=== PATIENT | female | born 1955 | race African-American/Black ===

== ENCOUNTER 2017-09-14 07:41 | Emergency (ER) | payer MEDICARE, MEDICAID ==
[~2017-09-14] VITALS: Ht 165.1 cm; Wt 72.6 kg
[2017-09-14] MEDS ORDERED: UNOBMED (07:49)
--- NOTE | 2017-09-14 08:06 | Emergency Room Report ---
History of Present Illness General Chief Complaint: Multiple Trauma/Fall Source: Patient Present Illness HPI 62-year-old female presenting with bilateral knee and wrist pain. Patient states that she slipped and fell yesterday, landing on her knees and her wrist. Mostly complaining of the pain to the left side. She is still been able to walk without difficulty Allergies: Coded Allergies: No Known Allergies (Unverified , 09/14/17) Patient History Past Medical History: see triage record Past Surgical History: none Pertinent Family History: none Last Menstrual Period: Post Reviewed Nursing Documentation: PMH: Agreed, PSxH: Agreed Nursing Documentation-PMH Hx Hypertension: Yes Review of Systems All Other Systems: negative except mentioned in HPI Physical Exam Vital Signs Date Time Temp Pulse Resp B/P (MAP) Pulse Ox O2 Delivery O2 Flow Rate FiO2 09/14/17 07:44 98.2 75 17 165/89 100 Room Air General Appearance: alert, GCS 15, non-toxic, mild distress Musculoskeletal: other - Right wrist and right knee, no abnormalities, full range of motion, left knee tender to palpation, no gross bony deformity, full range of motion, no effusion. Left wrist also with no deformity. Full range of motion. All pulses are intact Procedures Splinting Splinting : Consent: Verbal Location: L knee Pre-Made Type: RENETTA wrap Pre-Proc Neuro Vasc Exam: normal Post-Proc Neuro Vasc Exam: normal Patient Tolerated: Well Complications: None Medical Decision Making Diagnostic Impression: Primary Impression: Contusion ER Course 62-year-old female with left knee and left wrist pain DDX: Sprain/strain vs. fracture versus contusion Plan: Pain control with motrin XR ER course: stable, renetta wrap to L knee. no fx Disposition: Patient is to be discharged home. Patient educated to rest, ice, and elevate extremity and to avoid vigorous activity. Strict precautions discussed with patient on when to return to the emergency room including increased redness or swelling joints, increased pain/swelling of extremity, fever or chills, which could indicate severe illness. Patient is to follow up with their primary care doctor within 5 days. Patient also instructed to follow up with an orthopedic doctor if continuing to have mild/moderate pain as he may need further outpatient imaging. Patient agrees with plan. Please note that this Emergency Department Report was dictated using [employer] carrier inspector technology software, occasionally this can lead to erroneous entry secondary to interpretation by the dictation equipment. Xray ordered: Left knee 3 view Indication: Pain EP Interpretation: Yes Interpretation: No dislocation, no soft tissue swelling, no fractures Impression: No acute disease Electronically signed by Kae Yao MD Xray: Left wrist 3 view Indication: Pain EP Interpretation: Yes Interpretation: No dislocation, no soft tissue swelling, no fractures Impression: No acute disease Electronically signed by Kae Yao MD Last Vital Signs Date Time Temp Pulse Resp B/P (MAP) Pulse Ox O2 Delivery O2 Flow Rate FiO2 09/14/17 07:44 98.2 75 17 165/89 100 Room Air Disposition: HOME, SELF-CARE Condition: Improved Patient Instructions: Contusion, [id number] Kae Yao M.D. Sep 14, 2017 08:06
[2017-09-14 09:05] VITALS: BP 165/89
--- NOTE | 2017-09-14 12:23 | Diagnostic Imaging Report ---
Indication: Pain 3 views of the left knee were obtained. Findings: There is no acute fracture seen. The bones are osteopenic and there is no malalignment. Marginal spurs are present. IMPRESSION: No acute injury
--- NOTE | 2017-09-14 12:24 | Diagnostic Imaging Report ---
Indication: Pain Findings: 3 views of the left wrist were obtained. No acute fractures, malalignment, erosions or periostitis are identified. Soft tissues are unremarkable. Marginal spurs and joint space narrowing are demonstrated in several locations. Impression: No acute findings. Wrist arthrosis
== END 2017-09-14 09:06 | disposition home or self-care (01) ==
LOC: EMR 08:39
DX: M25.562 Pain in left knee (principal); M25.532 Pain in left wrist; I10 Essential (primary) hypertension; T14.8XXA Other injury of unspecified body region, initial encounter; W01.0XXA Fall on same level from slipping, tripping and stumbling without subsequent striking against object, initial encounter; Y92.9 Unspecified place or not applicable
CPT/HCPCS: 99284

== ENCOUNTER 2019-10-26 13:33 | Inpatient (IN) | payer MEDICARE, OTHER ==
[~2019-10-26] VITALS: Ht 162.6 cm; Wt 77.1 kg
[2019-10-26] VITALS (8 sets, daily range): BP systolic 144–204; BP diastolic 78–102
[~2019-10-26 13:33] MED LIST: UNOBMED
--- NOTE | 2019-10-26 13:37 | NUR ---
ED Nurse Note: PT AMBULATED TO ED DUE TO ANGIOEDEMA. PT PRESENT WITH SWOLLEN TONGUE AND GARGLED VOICE. PT STATES IT BEGAN AT 1000 AM TODAY. IV SITE ESTABLISEHD ON BOTH LEFT AND RIGHT AC. PT TOLERATED WELL
[2019-10-26] MEDS ORDERED: DiphenhydrAMINE 50mg/ml Inj IVP ONE (13:45)
[2019-10-26] MEDS ORDERED: Dexamethasone 4mg/ml vial IVP ONE (13:45)
[2019-10-26] MEDS ORDERED: Tranexamic Acid 500 MG in NS 55 ML IVPB ONE ×4 (13:45)
[2019-10-26] MEDS ORDERED: Lidocaine 2% Visc 15ml soln ORAL ONE (13:45)
[2019-10-26] MEDS ORDERED: Lidocaine 4% Amp 5ml INH ONE (13:45)
[2019-10-26] MEDS ORDERED: EPINEPHrine 1mg/1ml Amp IM ONE ×2 (13:45→14:45)
--- NOTE | 2019-10-26 13:45 | NUR ---
ED Nurse Note: NASAL TRUMPET INSERTED IN LEFT NARE. PT PLACED ON 5 L o2 FACE MASK.
[2019-10-26] MEDS ORDERED: AMLODIPINE BESY10 MG ORAL (13:52)
[2019-10-26] MEDS ORDERED: SPIRONOLACTONE100 MG ORAL (13:52)
[2019-10-26] MEDS ORDERED: SERTRALINE HCL25 MG ORAL (13:52)
[2019-10-26] MEDS ORDERED: VALACYCLOVIR500 MG ORAL (13:52)
[2019-10-26] MEDS ORDERED: VENTOLIN HFA18 GM INH (13:52)
[2019-10-26] MEDS ORDERED: CLONIDINE HCL0.1 MG PO (13:52)
[2019-10-26] MEDS ORDERED: WELLBUTRIN SR200 MG ORAL (13:52)
[2019-10-26] MEDS ORDERED: ACETAMINOPHEN-1 EAC4 ORAL (13:52)
[2019-10-26] MEDS ORDERED: REMERON15 M1 ORAL (13:52)
[2019-10-26] MEDS ORDERED: VITAMIN D34000 UNIT PO (13:52)
--- NOTE | 2019-10-26 14:00 | NUR ---
ED Nurse Note: PER ERMD OVERRIDE 30ML 1 % LIDOCAINE. PER ERMD NEBULIZE LIDOCAINE. RT AT BEDSIDE NEBULIZING MEDICATION
[2019-10-26] MEDS ORDERED: Lidocaine 1% Plain 30 ml INJ ONE ×2 (14:05→14:15)
--- NOTE | 2019-10-26 14:37 | Emergency Room Report ---
History of Present Illness General Chief Complaint: Allergic Reaction Source: Patient Present Illness HPI 64-year-old female history of hypertension history of hyperlipidemia history of HIV presents with tongue swelling that started at 10 AM, severity is severe, sudden onset, she states the symptoms plateaued around 12 PM, possibly aggravated by lisinopril no alleviating factors severity is severe, constant patient presents for evaluation due to difficulty breathing Allergies: Coded Allergies: LISINOPRIL (Verified Allergy, Unknown, 10/26/19) Patient History Limited by: medical condition - Tongue is occluding airway Past Medical History: see triage record Reviewed Nursing Documentation: PMH: Agreed; PSxH: Agreed Nursing Documentation-PMH Hx Hypertension: Yes History Of Psychiatric Problem: Yes Review of Systems All Other Systems: negative except mentioned in HPI Physical Exam Vital Signs Date Time Temp Pulse Resp B/P (MAP) Pulse Ox O2 Delivery O2 Flow Rate FiO2 10/26/19 13:37 114 19 204/97 (132) 100 10/26/19 14:12 98.4 Simple Mask 5.0 Sp02 EP Interpretation: reviewed, normal General Appearance: alert, severe distress Head: normocephalic, atraumatic Eyes: bilateral eye PERRL, bilateral eye EOMI ENT: uvula midline, moist mucus membranes, other - Tongue occluding airway however currently protecting airway, not drooling Neck: supple, thyroid normal, supple/symm/no masses Respiratory: lungs clear, no respiratory distress, no retraction, no accessory muscle use Cardiovascular #1: normal peripheral pulses, no edema, no gallop, no murmur, tachycardia Gastrointestinal: non tender, soft, no guarding, no rebound Musculoskeletal: normal inspection Neurologic: alert, oriented x3 Psychiatric: anxious Skin: no rash, warm/dry Procedures Critical Care Time Critical Care Time Given the critical condition in which the patient arrived, the patient was immediately assessed by myself and the nurse, and cardiac monitoring initiated due to the potential for rapid decompensation of the patient's clinical condition. During the course of the patient's stay, I spent a considerable amount of time at the bedside performing serial re-evaluations of the patient's hemodynamic and clinical status because of the recognized potential threat to life or limb in this condition. I then had a chance to review not only all of the available current laboratory and radiographic studies obtained today, but I also reviewed old records available to me at the time. Additionally, any ancillary information available including vascular technician records were reviewed. Sequential vital signs were obtained. Critical Care time of 49 minutes was performed exclusive of billable procedures. Medical Decision Making Diagnostic Impression: Primary Impression: Angioedema Qualified Codes: T78.3XXA - Angioneurotic edema, initial encounter ER Course 64-year-old female presents with acute shortness of breath due to occlusion of her airway however she is currently packing her secretions, preparation for a week intubation, patient was given TXA, epinephrine, famotidine, Decadron, a liter of fluid as well as nebulized lidocaine. Anesthesia was emergently called We continued to monitor the airway Cric kit was placed at bedside, with video laryngoscopy. Multiple re-evaluations showed tongue swelling has slowly decreased will admit patient to the ICU for continued monitoring reevaluation 2:36 PM patient is currently protecting her airway Patient will be monitored in the ED for another hour. Patient admitted to Dr. Henderson Last Vital Signs Date Time Temp Pulse Resp B/P (MAP) Pulse Ox O2 Delivery O2 Flow Rate FiO2 10/26/19 14:12 114 19 10/26/19 14:12 98.4 204/97 100 Simple Mask 5.0 Disposition: ADMITTED INPATIENT Condition: Critical Referrals: NON PHYSICIAN (PCP) Justo Justice MD Oct 26, 2019 14:37
--- NOTE | 2019-10-26 14:40 | NUR ---
ED Nurse Note: BLOOD SPECIMEN OBTAINED; SENT TO LAB
--- NOTE | 2019-10-26 14:40 | NUR ---
ED Nurse Note: DAUGHTER SOLO AT BEDSIDE
[2019-10-26 14:47] LABS: BASOPHILS % (AUTO) 1.2 % (0.0-2.0); EOSINOPHILS % (AUTO) 1.8 % (0.0-3.0); HEMATOCRIT 28.3 % (37.0-47.0); HEMOGLOBIN 9.9 G/DL (12.0-16.0); LYMPHOCYTES % (AUTO) 39.4 % (20.0-45.0); MEAN CORPUSCULAR VOLUME 85 FL (80-99); MONOCYTES % (AUTO) 11.2 % (1.0-10.0); NEUTROPHILS % (AUTO) 46.5 % (45.0-75.0); PLATELET COUNT 416 K/UL (150-450); RED BLOOD COUNT 3.32 M/UL (4.20-5.40); RED CELL DISTRIBUTION WIDTH 12.4 % (11.6-14.8); WHITE BLOOD COUNT 15.2 K/UL (4.8-10.8)
--- NOTE | 2019-10-26 14:50 | NUR ---
ED Nurse Note: PT URINE COLLECTED. PT WAS ASSITED ON BED BRISENO
[2019-10-26] MEDS ORDERED: Albuterol/Ipratropium 3ml neb HHN PRN (15:00)
[2019-10-26] MEDS ORDERED: Labetalol 5mg/ml 20ml vial IV PRN (15:00)
[2019-10-26 15:12] LABS: ANION GAP 15 mmol/L (5-15); BLOOD UREA NITROGEN 34 mg/dL (7-18); CALCIUM 9.7 MG/DL (8.5-10.1); CARBON DIOXIDE 19 MMOL/L (21-32); CHLORIDE 108 MMOL/L (98-107); CREATININE 1.8 MG/DL (0.55-1.30); SODIUM 142 MMOL/L (136-145)
[2019-10-26 15:17] LABS: ALANINE AMINOTRANSFERASE 73 U/L (12-78); ALBUMIN 3.5 G/DL (3.4-5.0); ALBUMIN/GLOBULIN RATIO 0.7 (1.0-2.7); ALKALINE PHOSPHATASE 145 U/L (46-116); ASPARTATE AMINO TRANSFERASE 43 U/L (15-37); BILIRUBIN,TOTAL 0.3 MG/DL (0.2-1.0)
[2019-10-26] MEDS ORDERED: Morphine Sulfate 2mg/ml Inj(IV/IM USE ONLY) IVP ONE (15:45)
[2019-10-26] MEDS ORDERED: Miralax 17gm pkt ORAL PRN (16:00)
[2019-10-26] MEDS ORDERED: Nitroglycerin Subl 0.4mg tab SL PRN (16:00)
--- NOTE | 2019-10-26 16:49 | NUR ---
ED Nurse Note: report given to EFRAIN Reina for continuity of care
--- NOTE | 2019-10-26 16:49 | NUR ---
TRANSFER TO FLOOR: Patient transferred to ICU as ordered, per ERMD . Report given to EFRAIN DAVIS. Belongings and medications given to FAMILY. Family informed of transfer.
--- NOTE | 2019-10-26 17:00 | NUR ---
NURSE NOTES: Patient received from EFRAIN Dunbar. patient is able to communicated clearly, swelling noted on mouth and neck, family at the bedside and updated condition. patient Iphone is at the bedside with graves registration specialist inside patient belongings. she is saturating at 97-99% with no distress on room air. -patient waled to bed with no assistance and has a steady gait.
--- NOTE | 2019-10-26 17:40 | NUR ---
NURSE NOTES: Dr. Coleman contacted to palce and order for NPO and Tylenol #3 on tab po q4hrs for severe pain. patient is experienceing pain on the lower back, left hip and extends to the knees of both legs. rated the pain around 7-8.
--- NOTE | 2019-10-26 17:49 | History & Physical ---
History and Physical History & Physicial Dictated for Int Med-DR Pride. [id number]. ICU Rogelio Buenrostro MD Oct 26, 2019 17:49
--- NOTE | 2019-10-26 17:55 | NUR ---
NURSE NOTES: Dr. hoover is at the bedside with patient, no verbal orders given at this time.
[2019-10-26] MEDS: Tylenol #3 tab (300mg/30mg) ORAL PRN ×2 (18:26→23:03)
--- NOTE | 2019-10-26 19:08 | NUR ---
CASE MANAGEMENT: REVIEW 64 YEAR OLD FEMALE PRESENTED TO ED FROM HOME CC: SWOLLEN TONGUE . HX HIV SI: ANGIOEDEMA T 98.4 HR 114 RR 19 BP 204/97 SAT 98% SIMPLE MASK FLOW RATE 5.0 WBC 15.2 H/H 9.9/28.3 TROP 0.071 IS: NS IVF BOLUS X1 TRANEXAMIC ACID IV X1 PEPCID IV X1 BENADRYL IV X1 NPO PATIENT ADMITTED TO ICU 10/26/2019 DCP: PATIENT IS FROM HOME
--- NOTE | 2019-10-26 19:31 | NUR ---
HAND-OFF: Report given to EFRAIN Hou.
--- NOTE | 2019-10-26 19:45 | NUR ---
NURSE NOTES: awake and alert no c/o pain and sob hr sr voiding freely
[2019-10-26] MEDS: Heparin 5000 units/ml inj SUBQ SCH (21:54)
--- NOTE | 2019-10-26 22:00 | NUR ---
NURSE NOTES: C/O PAIN MEDICATED ORDER WITH RELIEF
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
[2019-10-27] VITALS (18 sets, daily range): BP systolic 110–148; BP diastolic 52–110
--- NOTE | 2019-10-27 | NUR ---
NURSE NOTES: ASLEEP NO ACUTE RESP DISTRESS
--- NOTE | 2019-10-27 02:00 | NUR ---
NURSE NOTES: SLEEP NO DISTRESS NOTED
[2019-10-27] MEDS: Tylenol #3 tab (300mg/30mg) ORAL PRN ×3 (03:46→18:20)
--- NOTE | 2019-10-27 03:47 | NUR ---
NURSE NOTES: Pt complaining of aching head ache, scale of 8. Tylenol #3 was given.
--- NOTE | 2019-10-27 04:00 | NUR ---
NURSE NOTES: n0 c/o of pain refuse bed bath she want at [id number]
--- NOTE | 2019-10-27 06:00 | NUR ---
NURSE NOTES: asleep no acute resp distress noted
--- NOTE | 2019-10-27 06:00 | NUR ---
NURSE NOTES: reposition and suction
[2019-10-27 06:18] LABS: ANION GAP 16 mmol/L (5-15); BLOOD UREA NITROGEN 29 mg/dL (7-18); CALCIUM 10.2 MG/DL (8.5-10.1); CARBON DIOXIDE 16 MMOL/L (21-32); CHLORIDE 108 MMOL/L (98-107); CREATININE 1.4 MG/DL (0.55-1.30); POTASSIUM 5.6 MMOL/L (3.5-5.1); SODIUM 140 MMOL/L (136-145)
[2019-10-27 06:40] LABS: INR 0.9 (0.9-1.1)
[2019-10-27 06:58] LABS: HEMATOCRIT 28.2 % (37.0-47.0); HEMOGLOBIN 9.8 G/DL (12.0-16.0); MEAN CORPUSCULAR VOLUME 85 FL (80-99); PLATELET COUNT 453 K/UL (150-450); RED BLOOD COUNT 3.33 M/UL (4.20-5.40); RED CELL DISTRIBUTION WIDTH 12.6 % (11.6-14.8)
[2019-10-27 07:02] LABS: % IRON SATURATION 16 % (15-50); IRON 44 ug/dL (50-175); TOTAL IRON BINDING CAPACITY 277 ug/dL (250-450)
[2019-10-27 07:38] LABS: CHOLESTEROL 176 MG/DL (< 200); HDL CHOLESTEROL 51 MG/DL (40-60); LACTATE DEHYDROGENASE 203 U/L (81-234); TRIGLYCERIDES 41 MG/DL (30-150)
--- NOTE | 2019-10-27 07:44 | NUR ---
HAND-OFF: Report given to sam barbosa using sbar
--- NOTE | 2019-10-27 07:45 | NUR ---
NURSE NOTES: Report received from EFRAIN Humphrey. Pt observed fully awake, A&Ox4, following all commands. Pt is on room air. NSR on the network liaison. Using bedside commode to void. Bed locked and in lowest position with call light within reach Will resume plan of care.
[2019-10-27] MEDS: Heparin 5000 units/ml inj SUBQ SCH ×2 (08:37→21:00)
[2019-10-27] MEDS ORDERED: Docusate 100mg cap ORAL SCH (09:00)
[2019-10-27] MEDS ORDERED: Sodium Polystyrene Sulfonate 15gm Powder ORAL SCH (09:00)
[2019-10-27] MEDS ORDERED: Sertraline 50mg tab ORAL SCH (09:00)
[2019-10-27] MEDS ORDERED: BuPROPion SR 150mg tab ORAL SCH (09:00)
--- NOTE | 2019-10-27 09:00 | NUR ---
NURSE NOTES: Pt refused Heparin this morning, despite encouragement, d/t not wanting to get a needle stick.
--- NOTE | 2019-10-27 09:03 | Consultation ---
Consult Note Consult Note Asked to eval for renal failure-BP management and Electrolyte imbalance interviewed, examined- discussed with RN Rachael rivas historian symptoms of angioedema now resolved ER 64-year-old female history of hypertension history of hyperlipidemia history of HIV presents with tongue swelling that started at 10 AM, severity is severe, sudden onset, she states the symptoms plateaued around 12 PM, possibly aggravated by lisinopril no alleviating factors severity is severe, constant patient presents for evaluation due to difficulty breathing LISINOPRIL (Verified Allergy, Unknown, 10/26/19) Limited by: medical condition - Tongue is occluding airway Hx Hypertension: Yes History Of Psychiatric Problem: Yes Assessment/Plan Renal failure- Hyperkalemia HTN Anemia- Angioedema due to lisinopril Elevated Troponin h/o Depression adjust BP meds- IV hydrate one dose Kayexelate resume diet- cardiac nitrate Anemia williamson 2D echo Kidney MACY urine studies per orders Jordin Llanos MD Oct 27, 2019 09:03
[2019-10-27 09:16] LABS: ALANINE AMINOTRANSFERASE 60 U/L (12-78); ALBUMIN 3.5 G/DL (3.4-5.0); ALKALINE PHOSPHATASE 145 U/L (46-116); ASPARTATE AMINO TRANSFERASE 32 U/L (15-37); BILIRUBIN,TOTAL 0.3 MG/DL (0.2-1.0); PHOSPHORUS 3.1 MG/DL (2.5-4.9)
[2019-10-27 09:17] LABS: BILIRUBIN,DIRECT < 0.1 MG/DL (0.0-0.3)
--- NOTE | 2019-10-27 10:10 | NUR ---
NURSE NOTES: Tech at bedside performing 2D echo. Dr Coleman at bedside, updated him with pt's current condition. Pt does not want her hx of HIV being mentioned in front of her family members. Dr Coleman aware.
[2019-10-27 10:54] LABS: APPEARANCE,URINE CLEAR; BILIRUBIN, URINE NEGATIVE (NEGATIVE); COLOR,URINE PALE YELLOW; GLUCOSE, URINE (UA) NEGATIVE (NEGATIVE); KETONES,URINE NEGATIVE (NEGATIVE); LEUKOCYTE ESTERASE ,URINE NEGATIVE (NEGATIVE); NITRITE,URINE NEGATIVE (NEGATIVE); PH,URINE 6 (4.5-8.0); PROTEIN,URINE NEGATIVE (NEGATIVE); UROBILINOGEN,URINE NORMAL MG/DL (0.0-1.0)
--- NOTE | 2019-10-27 11:00 | NUR ---
NURSE NOTES: Assisted pt with Oral care. Pt able to reposition herself.
--- NOTE | 2019-10-27 11:58 | Consultation ---
History of Present Illness General Date patient seen: Oct 27, 2019 Chief Complaint: Allergic Reaction Present Illness HPI 64 year old female with hx of HTN, COPD, depression, HIV presented to ER with swelling of tongue, her SBP was 220 in ER. She received Dexamethasone, Epinephrine, and clonidine for BP and transferred to ICU. Allergies: Coded Allergies: LISINOPRIL (Verified Allergy, Unknown, 10/26/19) Medication History Scheduled Albuterol Sulfate (Ventolin Hfa), 2 PUFFS INH EVERY 6 HOURS, (Reported) Amlodipine Besylate* (Amlodipine Besylate*), 10 MG ORAL DAILY, (Reported) Mirtazapine (Remeron), 15 MG ORAL BEDTIME, (Reported) Sertraline Hcl* (Sertraline Hcl*), 25 MG ORAL DAILY, (Reported) Spironolactone* (Spironolactone*), 50 MG ORAL DAILY, (Reported) Valacyclovir Hcl* (Valtrex*), 500 MG ORAL TWICE A DAY, (Reported) Scheduled PRN Acetaminophen With Codeine 300MG/60MG* (Acetaminophen With Codeine #4 Tab*), 1 TAB ORAL Q6H PRN for For Pain, (Reported) Miscellaneous Medications Bupropion Hcl (Wellbutrin Sr), 150 MG ORAL, (Reported) Cholecalciferol (Vitamin D3) (Vitamin D3), 5,000 UNIT PO, (Reported) Clonidine Hcl (Clonidine Hcl), 0.1 MG PO, (Reported) Unable to Obtain Medications (Unable To Obtain Meds), (Reported) Patient History Healthcare decision maker Resuscitation status Full Code Advanced Directive on File Family History Family History: (1) HIV disease (2) S/P splenectomy (3) History of hypertension (4) Hypertensive emergency (5) Depression (6) Hypertension (7) COPD (chronic obstructive pulmonary disease) Review of Systems All Other Systems: negative except mentioned in HPI Physical Exam General Appearance: WD/WN, no apparent distress Lines, tubes and drains: peripheral HEENT: normocephalic, atraumatic Neck: non-tender, normal alignment, supple Respiratory/Chest: lungs clear, normal breath sounds Cardiovascular/Chest: normal peripheral pulses, normal rate Abdomen: hyperactive bowel sounds Extremities: normal range of motion Last 24 Hour Vital Signs Date Time Temp Pulse Resp B/P (MAP) Pulse Ox O2 Delivery O2 Flow Rate FiO2 10/27/19 11:00 75 19 120/75 (90) 100 10/27/19 10:00 72 19 148/110 (123) 100 10/27/19 09:00 83 16 128/58 (81) 94 10/27/19 08:51 148/95 10/27/19 08:48 85 148/95 10/27/19 08:00 97.7 71 14 148/95 (112) 98 10/27/19 08:00 73 10/27/19 08:00 Room Air 10/27/19 07:08 73 20 98 Room Air 21 10/27/19 07:00 76 20 139/90 (106) 98 10/27/19 04:00 Room Air 10/27/19 04:00 73 10/27/19 00:00 Room Air 10/27/19 00:00 87 10/26/19 21:00 149/88 10/26/19 20:00 Room Air 10/26/19 20:00 99 10/26/19 18:57 104 20 96 Room Air 21 10/26/19 17:00 98.8 102 23 144/78 (100) 96 10/26/19 16:45 98.7 89 17 159/91 94 Room Air 10/26/19 16:45 98.7 10/26/19 15:10 98.5 107 17 165/100 98 Simple Mask 5.0 10/26/19 14:12 114 19 10/26/19 14:12 98.4 114 19 204/97 100 Simple Mask 5.0 10/26/19 13:37 114 19 204/97 (132) 100 Intake and Output 10/26/19 10/27/19 19:00 07:00 Intake Total 120 ml 0 ml Output Total 0 ml 900 ml Balance 120 ml -900 ml Intake Oral 0 ml 0 ml IV Total 120 ml Output Urine Total 0 ml 900 ml # Voids 1 # Bowel Movements 1 Laboratory Tests Test 10/26/19 14:35 10/27/19 05:20 10/27/19 09:15 White Blood Count 15.2 K/UL (4.8-10.8) H 14.0 K/UL (4.8-10.8) H Red Blood Count 3.32 M/UL (4.20-5.40) L 3.33 M/UL (4.20-5.40) L Hemoglobin 9.9 G/DL (12.0-16.0) L 9.8 G/DL (12.0-16.0) L Hematocrit 28.3 % (37.0-47.0) L 28.2 % (37.0-47.0) L Mean Corpuscular Volume 85 FL (80-99) 85 FL (80-99) Mean Corpuscular Hemoglobin 29.8 PG (27.0-31.0) 29.6 PG (27.0-31.0) Mean Corpuscular Hemoglobin Concent 35.0 G/DL (32.0-36.0) 34.9 G/DL (32.0-36.0) Red Cell Distribution Width 12.4 % (11.6-14.8) 12.6 % (11.6-14.8) Platelet Count 416 K/UL (150-450) 453 K/UL (150-450) H Mean Platelet Volume 5.3 FL (6.5-10.1) L 5.0 FL (6.5-10.1) L Neutrophils (%) (Auto) 46.5 % (45.0-75.0) % (45.0-75.0) Lymphocytes (%) (Auto) 39.4 % (20.0-45.0) % (20.0-45.0) Monocytes (%) (Auto) 11.2 % (1.0-10.0) H % (1.0-10.0) Eosinophils (%) (Auto) 1.8 % (0.0-3.0) % (0.0-3.0) Basophils (%) (Auto) 1.2 % (0.0-2.0) % (0.0-2.0) Sodium Level 142 MMOL/L (136-145) 140 MMOL/L (136-145) Potassium Level 5.0 MMOL/L (3.5-5.1) 5.6 MMOL/L (3.5-5.1) H Chloride Level 108 MMOL/L (98-107) H 108 MMOL/L (98-107) H Carbon Dioxide Level 19 MMOL/L (21-32) L 16 MMOL/L (21-32) L Anion Gap 15 mmol/L (5-15) 16 mmol/L (5-15) H Blood Urea Nitrogen 34 mg/dL (7-18) H 29 mg/dL (7-18) H Creatinine 1.8 MG/DL (0.55-1.30) H 1.4 MG/DL (0.55-1.30) H Estimat Glomerular Filtration Rate 34.3 mL/min (>60) 45.8 mL/min (>60) Glucose Level 129 MG/DL (74-106) H 122 MG/DL (74-106) H Calcium Level 9.7 MG/DL (8.5-10.1) 10.2 MG/DL (8.5-10.1) H Total Bilirubin 0.3 MG/DL (0.2-1.0) 0.3 MG/DL (0.2-1.0) Aspartate Amino Transf (AST/SGOT) 43 U/L (15-37) H 32 U/L (15-37) Alanine Aminotransferase (ALT/SGPT) 73 U/L (12-78) 60 U/L (12-78) Alkaline Phosphatase 145 U/L (46-116) H 145 U/L (46-116) H Troponin I 0.071 ng/mL (0.000-0.056) 0.120 ng/mL (0.000-0.056) Total Protein 8.3 G/DL (6.4-8.2) H 8.6 G/DL (6.4-8.2) H Albumin 3.5 G/DL (3.4-5.0) 3.5 G/DL (3.4-5.0) Globulin 4.8 g/dL Albumin/Globulin Ratio 0.7 (1.0-2.7) L Differential Total Cells Counted 100 Neutrophils % (Manual) 81 % (45-75) H Lymphocytes % (Manual) 12 % (20-45) L Monocytes % (Manual) 7 % (1-10) Eosinophils % (Manual) 0 % (0-3) Basophils % (Manual) 0 % (0-2) Band Neutrophils 0 % (0-8) Platelet Estimate Adequate Platelet Morphology Normal Hypochromasia 1+ Erythrocyte Sedimentation Rate 85 MM/HR (0-30) H Reticulocyte Count Pending Prothrombin Time 10.0 SEC (9.30-11.50) Prothromb Time International Ratio 0.9 (0.9-1.1) Activated Partial Thromboplast Time 22 SEC (23-33) L Uric Acid Pending Phosphorus Level 3.1 MG/DL (2.5-4.9) Magnesium Level 2.0 MG/DL (1.8-2.4) Iron Level 44 ug/dL (50-175) L Total Iron Binding Capacity 277 ug/dL (250-450) Percent Iron Saturation 16 % (15-50) Unsaturated Iron Binding 233 ug/dL (112-346) Ferritin 422 NG/ML (8-388) H Direct Bilirubin < 0.1 MG/DL (0.0-0.3) Lactate Dehydrogenase 203 U/L (81-234) Total Creatine Kinase Pending C-Reactive Protein, Quantitative 4.6 mg/dL (0.00-0.90) H Triglycerides Level 41 MG/DL (30-150) Cholesterol Level 176 MG/DL (< 200) LDL Cholesterol 112 mg/dL (<100) H HDL Cholesterol 51 MG/DL (40-60) Cholesterol/HDL Ratio 3.5 (3.3-4.4) Carcinoembryonic Antigen Pending Vitamin B12 Level 1176 PG/ML (193-986) H Folate 18.0 NG/ML (8.6-58.9) Thyroid Stimulating Hormone (TSH) 0.213 uiU/mL (0.358-3.740) Urine Color Pale yellow Urine Appearance Clear Urine pH 6 (4.5-8.0) Urine Specific [place] 1.010 (1.005-1.035) Urine Protein Negative (NEGATIVE) Urine Glucose (UA) Negative (NEGATIVE) Urine Ketones Negative (NEGATIVE) Urine Blood Negative (NEGATIVE) Urine Nitrite Negative (NEGATIVE) Urine Bilirubin Negative (NEGATIVE) Urine Urobilinogen Normal MG/DL (0.0-1.0) Urine Leukocyte Esterase Negative (NEGATIVE) Urine RBC 0 /HPF (0 - 2) Urine WBC 0 /HPF (0 - 2) Urine Squamous Epithelial Cells Occasional /LPF Urine Bacteria Occasional /HPF (NONE) Urine Random Sodium 138 mmol/L (20-110) H Urine Opiates Screen Positive (NEGATIVE) H Urine Barbiturates Screen Negative (NEGATIVE) Phencyclidine (PCP) Screen Negative (NEGATIVE) Urine Amphetamines Screen Negative (NEGATIVE) Urine Benzodiazepines Screen Negative (NEGATIVE) Urine Cocaine Screen Negative (NEGATIVE) Urine Marijuana (THC) Screen Negative (NEGATIVE) Microbiology Date/Time Source Procedure Growth Status 10/26/19 15:09 Rectum Received Height (Feet): 5 Height (Inches): 4.00 Weight (Pounds): 166 Medications Current Medications Medications (Trade) Dose Ordered Sig/Abel Route PRN Reason Start Time Stop Time Status Last Admin Dose Admin Acetaminophen (Tylenol) 650 mg Q4H PRN ORAL FEVER 10/26/19 15:00 11/25/19 14:59 Acetaminophen/ Codeine Phosphate (Tylenol #3) 1 tab Q4H PRN ORAL Severe Pain (Pain Scale 7-10) 10/26/19 17:30 11/02/19 17:29 10/27/19 08:49 Albuterol/ Ipratropium (Albuterol/ Ipratropium) 3 ml Q4H PRN HHN Shortness of Breath 10/26/19 15:00 10/31/19 14:59 Amlodipine Besylate (Norvasc) 10 mg DAILY ORAL 10/27/19 09:00 11/26/19 08:59 10/27/19 08:48 Bupropion HCl (Wellbutrin SR) 150 mg DAILY ORAL 10/27/19 09:00 11/26/19 08:59 10/27/19 08:50 Clonidine HCl (Catapres Tab) 0.1 mg EVERY 8 HOURS ORAL 10/27/19 14:00 11/25/19 20:59 Docusate Sodium (Colace) 100 mg TWICE A DAY ORAL 10/27/19 09:00 11/26/19 08:59 10/27/19 09:24 Heparin Sodium (Porcine) (Heparin 5000 units/ml) 5,000 units EVERY 12 HOURS SUBQ 10/26/19 21:00 11/25/19 20:59 10/26/19 21:54 Labetalol HCl (Normodyne) 20 mg Q1H PRN IV sbp more than 160 10/26/19 15:00 11/25/19 14:59 Nitroglycerin (Ntg) 0.4 mg Q5MIN PRN SL Prn Chest Pain 10/26/19 16:00 11/25/19 15:59 Ondansetron HCl (Zofran) 4 mg Q6H PRN IVP Nausea & Vomiting 10/26/19 16:00 11/25/19 15:59 Pantoprazole (Protonix) 40 mg DAILY ORAL 10/27/19 09:00 11/26/19 08:59 10/27/19 08:51 Polyethylene Glycol (Miralax) 17 gm DAILYPRN PRN ORAL Constipation 10/26/19 16:00 11/25/19 15:59 Sertraline HCl (Zoloft) 25 mg DAILY ORAL 10/27/19 09:00 11/26/19 08:59 10/27/19 08:50 Sodium Chloride 1,000 ml @ 75 mls/hr [id number] IV 10/27/19 09:00 11/26/19 08:59 10/27/19 09:14 Temazepam (Restoril) 15 mg HSPRN PRN ORAL Insomnia 10/26/19 21:00 11/02/19 20:59 Assessment/Plan Problem List: (1) Hypertensive emergency ICD Codes: I16.1 - Hypertensive emergency SNOMED: 551932780050308 (2) Angioedema ICD Codes: T78.3XXA - Angioneurotic edema, initial encounter SNOMED: 36590050 Qualifiers: Qualified Codes: T78.3XXA - Angioneurotic edema, initial encounter (3) COPD (chronic obstructive pulmonary disease) ICD Codes: J44.9 - Chronic obstructive pulmonary disease, unspecified SNOMED: 17678602 (4) Depression ICD Codes: F32.9 - Major depressive disorder, single episode, unspecified SNOMED: 49062125 (5) S/P splenectomy ICD Codes: Z90.81 - Acquired absence of spleen SNOMED: 85630342, 425975738, 337153069 (6) HIV disease ICD Codes: B20 - Human immunodeficiency virus [HIV] disease SNOMED: 58139248 Assessment/Plan: Pts angioedema has subsided already BP is better will transfer to telemetry anemia and renal w/u in progress. check electrolytes pt wished that none of her relatives find out about her HIV. symptomatic treatment dvt prophylaxis. Ruel Coleman MD Oct 27, 2019 11:58
[2019-10-27 12:04] LABS: CREATINE KINASE 236 U/L (26-308)
--- NOTE | 2019-10-27 13:00 | NUR ---
NURSE NOTES: After eating lunch, Pt had a BM in the bedside commode. OB stool collected and sent down to the lab. No distress noted at this time.
--- NOTE | 2019-10-27 14:09 | Diagnostic Imaging Report ---
Indication: Acute renal failure, abnormal renal function tests Technique: Grayscale and duplex images of the kidneys, retroperitoneum, and bladder were obtained. Comparison: none Findings: Right kidney measures 9.1 cm in length. Left kidney measures 9 cm in length. Both kidneys demonstrate normal echogenicity. No hydronephrosis. Left kidney demonstrates a small cyst.. Normal inferior vena cava. Bladder is empty. Impression: Essentially unremarkable exam Incidental finding of small left renal cyst.
--- NOTE | 2019-10-27 15:00 | NUR ---
NURSE NOTES: Pt voices no concerns at this time. No distress noted. Pt able to reposition herself. Observed resting in bed.
--- NOTE | 2019-10-27 16:21 | NUR ---
DIRECTOR TELEMETRY NOTE Pt was admitted to ICU on 10/26/2019. Pt presents as A&O4x and cooperative. Pt resides alone at [address] [place] [id number]. Pt receives IHSS appx 100 hrs/mo. Pt is single, never and has four adult daughters. The caregiver is pt's youngest daughter, Altagracia Heath [phone]. Pt is ambulatory w/ cane and she also has a walker. Pt is independent w/ ADLs and occasionally receives assistance from her daughter. Emergency contacts provided: Valeri Dial (sister) [phone]. Pt does not have POA/AD/POLST. PT is expressing full code. Pt reports her daughters will be the decision makers if pt cannot make one. Bienvenido (primary/eldest daughter) [phone] and Laurel (second daughter) [phone]. Pt plans to return home upon DC. Pt does not share any concern/needs at this time. SW to F/U as needed. Signed: 10/27/19 at 1625 by MATILDA UMANA <Co-Signature Required>
[2019-10-27] MEDS ORDERED: Labetalol 5mg/ml 20ml vial IV PRN (17:00)
[2019-10-27] MEDS ORDERED: Nitroglycerin Subl 0.4mg tab SL PRN (17:00)
[2019-10-27] MEDS ORDERED: Albuterol/Ipratropium 3ml neb HHN PRN (17:00)
--- NOTE | 2019-10-27 17:00 | NUR ---
TRANSFER TO FLOOR: Patient transferred to Tele [id number], per Dr Coleman. Report given to EFRAIN Drake. Belongings kept by pt;belonging sheet signed with receiving RN. Family informed of transfer.
[2019-10-27] MEDS: Docusate 100mg cap ORAL SCH (18:12)
--- NOTE | 2019-10-27 19:22 | Internal Med Progress Note ---
Subjective Date of Service: Oct 27, 2019 Physician Name Rogelio Buenrostro Attending Physician Robles Henderson MD Current Medications Medications (Trade) Dose Ordered Sig/Abel Route PRN Reason Start Time Stop Time Status Last Admin Dose Admin Acetaminophen (Tylenol) 650 mg Q4H PRN ORAL FEVER 10/27/19 17:00 11/25/19 16:59 Acetaminophen/ Codeine Phosphate (Tylenol #3) 1 tab Q4H PRN ORAL Severe Pain (Pain Scale 7-10) 10/27/19 17:00 11/02/19 16:59 10/27/19 18:20 Albuterol/ Ipratropium (Albuterol/ Ipratropium) 3 ml Q4H PRN HHN Shortness of Breath 10/27/19 17:00 10/31/19 16:59 Amlodipine Besylate (Norvasc) 10 mg DAILY ORAL 10/28/19 09:00 11/26/19 08:59 Bupropion HCl (Wellbutrin SR) 150 mg DAILY ORAL 10/28/19 09:00 11/26/19 08:59 Clonidine HCl (Catapres Tab) 0.1 mg EVERY 8 HOURS ORAL 10/27/19 22:00 11/25/19 20:59 Docusate Sodium (Colace) 100 mg TWICE A DAY ORAL 10/27/19 18:00 11/26/19 08:59 10/27/19 18:12 Heparin Sodium (Porcine) (Heparin 5000 units/ml) 5,000 units EVERY 12 HOURS SUBQ 10/27/19 21:00 11/25/19 20:59 Labetalol HCl (Normodyne) 20 mg Q1H PRN IV sbp more than 160 10/27/19 17:00 11/25/19 14:59 Nitroglycerin (Ntg) 0.4 mg Q5MIN PRN SL Prn Chest Pain 10/27/19 17:00 11/25/19 16:59 Ondansetron HCl (Zofran) 4 mg Q6H PRN IVP Nausea & Vomiting 10/27/19 17:15 11/25/19 17:14 Pantoprazole (Protonix) 40 mg ACBREAKFAST ORAL 10/28/19 06:30 11/27/19 06:29 Polyethylene Glycol (Miralax) 17 gm DAILYPRN PRN ORAL Constipation 10/28/19 17:15 11/25/19 17:14 Quetiapine Fumarate (SEROqueL) 25 mg DAILY ORAL 10/27/19 17:15 11/26/19 17:14 10/27/19 18:12 Sodium Chloride 1,000 ml @ 75 mls/hr [id number] IV 10/27/19 17:00 11/26/19 16:59 10/27/19 18:12 Temazepam (Restoril) 15 mg HSPRN PRN ORAL Insomnia 10/27/19 21:00 11/02/19 20:59 Allergies: Coded Allergies: LISINOPRIL (Verified Allergy, Unknown, 10/26/19) ROS Limited/Unobtainable: No Constitutional: Reports: no symptoms HEENT: Reports: no symptoms Cardiovascular: Reports: no symptoms Respiratory: Reports: no symptoms Gastrointestinal/Abdominal: Reports: no symptoms Genitourinary: Reports: no symptoms Neurologic/Psychiatric: Reports: no symptoms Subjective 64 YO F admitted with angioedema of the tongue. Cover for Int Dragan-DR Henderson Objective Last Vital Signs Date Time Temp Pulse Resp B/P (MAP) Pulse Ox O2 Delivery O2 Flow Rate FiO2 10/27/19 16:00 77 10/27/19 16:00 Room Air 10/27/19 16:00 97.1 15 130/81 (97) 100 10/27/19 07:08 21 10/26/19 15:10 5.0 Laboratory Tests Test 10/27/19 05:20 10/27/19 09:15 10/27/19 12:45 White Blood Count 14.0 K/UL (4.8-10.8) H Red Blood Count 3.33 M/UL (4.20-5.40) L Hemoglobin 9.8 G/DL (12.0-16.0) L Hematocrit 28.2 % (37.0-47.0) L Mean Corpuscular Volume 85 FL (80-99) Mean Corpuscular Hemoglobin 29.6 PG (27.0-31.0) Mean Corpuscular Hemoglobin Concent 34.9 G/DL (32.0-36.0) Red Cell Distribution Width 12.6 % (11.6-14.8) Platelet Count 453 K/UL (150-450) H Mean Platelet Volume 5.0 FL (6.5-10.1) L Neutrophils (%) (Auto) % (45.0-75.0) Lymphocytes (%) (Auto) % (20.0-45.0) Monocytes (%) (Auto) % (1.0-10.0) Eosinophils (%) (Auto) % (0.0-3.0) Basophils (%) (Auto) % (0.0-2.0) Differential Total Cells Counted 100 Neutrophils % (Manual) 81 % (45-75) H Lymphocytes % (Manual) 12 % (20-45) L Monocytes % (Manual) 7 % (1-10) Eosinophils % (Manual) 0 % (0-3) Basophils % (Manual) 0 % (0-2) Band Neutrophils 0 % (0-8) Other Cell Type Pathologist review Platelet Estimate Adequate Platelet Morphology Normal Hypochromasia 1+ Erythrocyte Sedimentation Rate 85 MM/HR (0-30) H Reticulocyte Count 1.3 % (0.5-2.0) Prothrombin Time 10.0 SEC (9.30-11.50) Prothromb Time International Ratio 0.9 (0.9-1.1) Activated Partial Thromboplast Time 22 SEC (23-33) L Sodium Level 140 MMOL/L (136-145) Potassium Level 5.6 MMOL/L (3.5-5.1) H Chloride Level 108 MMOL/L (98-107) H Carbon Dioxide Level 16 MMOL/L (21-32) L Anion Gap 16 mmol/L (5-15) H Blood Urea Nitrogen 29 mg/dL (7-18) H Creatinine 1.4 MG/DL (0.55-1.30) H Estimat Glomerular Filtration Rate 45.8 mL/min (>60) Glucose Level 122 MG/DL (74-106) H Uric Acid 8.4 MG/DL (2.6-7.2) H Calcium Level 10.2 MG/DL (8.5-10.1) H Phosphorus Level 3.1 MG/DL (2.5-4.9) Magnesium Level 2.0 MG/DL (1.8-2.4) Iron Level 44 ug/dL (50-175) L Total Iron Binding Capacity 277 ug/dL (250-450) Percent Iron Saturation 16 % (15-50) Unsaturated Iron Binding 233 ug/dL (112-346) Ferritin 422 NG/ML (8-388) H Total Bilirubin 0.3 MG/DL (0.2-1.0) Direct Bilirubin < 0.1 MG/DL (0.0-0.3) Aspartate Amino Transf (AST/SGOT) 32 U/L (15-37) Alanine Aminotransferase (ALT/SGPT) 60 U/L (12-78) Alkaline Phosphatase 145 U/L (46-116) H Lactate Dehydrogenase 203 U/L (81-234) Total Creatine Kinase 236 U/L (26-308) Troponin I 0.120 ng/mL (0.000-0.056) C-Reactive Protein, Quantitative 4.6 mg/dL (0.00-0.90) H Total Protein 8.6 G/DL (6.4-8.2) H Albumin 3.5 G/DL (3.4-5.0) Triglycerides Level 41 MG/DL (30-150) Cholesterol Level 176 MG/DL (< 200) LDL Cholesterol 112 mg/dL (<100) H HDL Cholesterol 51 MG/DL (40-60) Cholesterol/HDL Ratio 3.5 (3.3-4.4) Carcinoembryonic Antigen Pending Vitamin B12 Level 1176 PG/ML (193-986) H Folate 18.0 NG/ML (8.6-58.9) Thyroid Stimulating Hormone (TSH) 0.213 uiU/mL (0.358-3.740) Urine Color Pale yellow Urine Appearance Clear Urine pH 6 (4.5-8.0) Urine Specific [place] 1.010 (1.005-1.035) Urine Protein Negative (NEGATIVE) Urine Glucose (UA) Negative (NEGATIVE) Urine Ketones Negative (NEGATIVE) Urine Blood Negative (NEGATIVE) Urine Nitrite Negative (NEGATIVE) Urine Bilirubin Negative (NEGATIVE) Urine Urobilinogen Normal MG/DL (0.0-1.0) Urine Leukocyte Esterase Negative (NEGATIVE) Urine RBC 0 /HPF (0 - 2) Urine WBC 0 /HPF (0 - 2) Urine Squamous Epithelial Cells Occasional /LPF Urine Bacteria Occasional /HPF (NONE) Urine Random Sodium 138 mmol/L (20-110) H Urine Opiates Screen Positive (NEGATIVE) H Urine Barbiturates Screen Negative (NEGATIVE) Phencyclidine (PCP) Screen Negative (NEGATIVE) Urine Amphetamines Screen Negative (NEGATIVE) Urine Benzodiazepines Screen Negative (NEGATIVE) Urine Cocaine Screen Negative (NEGATIVE) Urine Marijuana (THC) Screen Negative (NEGATIVE) Stool Occult Blood Pending Microbiology Date/Time Source Procedure Growth Status 10/26/19 15:09 Rectum Received Intake and Output 10/26/19 10/27/19 19:00 07:00 Intake Total 120 ml 0 ml Output Total 0 ml 900 ml Balance 120 ml -900 ml Intake Oral 0 ml 0 ml IV Total 120 ml Output Urine Total 0 ml 900 ml # Voids 1 # Bowel Movements 1 Objective PHYSICAL EXAMINATION: GENERAL: The patient is well-developed, well-nourished female, in no apparent distress. HEENT: Eyes, pupils are equal and responsive to light and accommodation. Extraocular movements are intact. NECK: Supple without lymphadenopathy. CHEST: Lungs are clear to auscultation bilaterally without wheezes or rales. CARDIOVASCULAR: Regular rate. S1, S2 normal without murmurs, rubs, or gallops. ABDOMEN: Soft, nontender, and nondistended. Positive bowel sounds. No evidence of hepatosplenomegaly. Currently, no rebound or guarding noted. EXTREMITIES: Negative for clubbing, cyanosis, or edema. RECTAL/GENITAL: Not performed. NEUROLOGIC: Cranial nerves II through XII are grossly intact without focal deficits. Motor strength is 5/5 bilaterally. Deep tendon reflexes are 2+ plantar. Assessment/Plan Assessment/Plan ASSESSMENT: This is a 64-year-old female. 1. Angioedema of the tongue. 2. Possible allergic reaction to lisinopril. 3. Hypertension. 4. Chronic obstructive pulmonary disease. 5. Hypercholesterolemia. 6. Renal insufficiency. 7. Leukocytosis. TREATMENT: 1. Angioedema of the tongue. The patient has received lidocaine and epinephrine in the emergency room. Tongue swelling is receding. The patient is able to talk in complete sentences. We will continue epinephrine p.r.n. Swelling resolved 2. Allergic reaction. This may be secondary to lisinopril, the patient denies taking lisinopril today. 3. Chronic obstructive pulmonary disease. Continue albuterol metered-dose inhaler as above. The patient will be offered DuoNebs p.r.n. 4. Hypercholesterolemia. Continue atorvastatin as above. 5. Renal insufficiency. This may be secondary to dehydration. 6. Leukocytosis. 7. Depression. Continue Zoloft and mirtazapine as above. Rogelio Buenrostro MD Oct 27, 2019 19:22
--- NOTE | 2019-10-27 19:33 | NUR ---
HAND-OFF: Report given to Porfirio ZUNIGA. Patient stable. Plan of care endorsed.
--- NOTE | 2019-10-27 19:45 | NUR ---
NURSE NOTES: Received report from Camila Wagoner RN. Pt in stable condition
[2019-10-28] VITALS: BP 122/68
[2019-10-28 04:00] VITALS: BP 120/69
[2019-10-28] MEDS: Tylenol #3 tab (300mg/30mg) ORAL PRN (06:59)
--- NOTE | 2019-10-28 07:17 | Pulmonology Progress Note ---
Assessment/Plan Assessment/Plan ASSESSMENT Hypertensive emergency -resolved Angioedema likely due to lisinopril - resolved COPD HIV status Anemia Acute kidney injury Elevated troponin Hyperkalemia History of splenectomy Tobacco user PLAN OF CARE tele serial troponin, trendgin down, still elevated denies CP ECHO with pEF 60 to 65%, mild pulmonary hypertension O2 HHN PRN BP management, optimized to keep BP under control, BP stabilized DVT and GI prophylaxis monitor H&H with goal to keep hemoglobin above 7 anemia work-up noted stool OB monitor renal parameters , lytes -per nephro; t avoid nephrotoxic renal US - essentially unremarkable continue antidepressant case discussed and evaluated by supervising physician Subjective Allergies: Coded Allergies: LISINOPRIL (Verified Allergy, Unknown, 10/26/19) Subjective BP stabilized, angioedema resolved troponin trending down still elevated Objective Last 24 Hour Vital Signs Date Time Temp Pulse Resp B/P (MAP) Pulse Ox O2 Delivery O2 Flow Rate FiO2 10/28/19 06:00 122/68 10/28/19 04:00 97.1 70 18 120/69 (86) 96 10/28/19 04:00 Room Air 10/28/19 04:00 56 10/28/19 00:00 67 10/28/19 00:00 97.1 62 18 122/68 (86) 96 10/27/19 21:51 144/87 10/27/19 20:29 82 20 98 Room Air 21 10/27/19 20:00 Room Air 10/27/19 20:00 70 10/27/19 20:00 97.7 69 18 144/87 (106) 96 10/27/19 16:00 77 10/27/19 16:00 Room Air 10/27/19 16:00 97.1 75 15 130/81 (97) 100 10/27/19 15:00 71 18 115/78 (90) 100 10/27/19 14:00 69 18 121/52 (75) 100 10/27/19 14:00 121/52 10/27/19 13:00 82 18 110/75 (87) 100 10/27/19 12:00 Room Air 10/27/19 12:00 74 10/27/19 12:00 97.3 71 19 119/67 (84) 100 10/27/19 11:00 75 19 120/75 (90) 100 10/27/19 10:00 72 19 148/110 (123) 100 10/27/19 09:00 83 16 128/58 (81) 94 10/27/19 08:51 148/95 10/27/19 08:48 85 148/95 10/27/19 08:00 97.7 71 14 148/95 (112) 98 10/27/19 08:00 73 10/27/19 08:00 Room Air Intake and Output 10/27/19 10/28/19 19:00 07:00 Intake Total 1147.5 ml Output Total 1000 ml Balance 147.5 ml Intake Oral 640 ml IV Total 507.5 ml Output Urine Total 1000 ml # Voids 4 3 # Bowel Movements 2 1 General Appearance: no acute distress HEENT: normocephalic, atraumatic, anicteric, mucous membranes moist Respiratory/Chest: lungs clear, no respiratory distress, no accessory muscle use Cardiovascular: normal peripheral pulses, normal rate, regular rhythm Abdomen: normal bowel sounds, soft, non tender, non distended Extremities: no edema Neurologic/Psychiatric: alert, oriented x 3, responsive, normal mood/affect Musculoskeletal: normal muscle bulk Microbiology Date/Time Source Procedure Growth Status 10/26/19 15:09 Nasal Nares MRSA Culture - Final NO METHICILLIN RESISTANT STAPH AUREUS... Complete 10/26/19 15:09 Rectum Received Laboratory Tests 10/27/19 09:15: Urine Color Pale yellow, Urine Appearance Clear, Urine pH 6, Urine Specific Baldwin 1.010, Urine Protein Negative, Urine Glucose (UA) Negative, Urine Ketones Negative, Urine Blood Negative, Urine Nitrite Negative, Urine Bilirubin Negative, Urine Urobilinogen Normal, Urine Leukocyte Esterase Negative, Urine RBC 0, Urine WBC 0, Urine Squamous Epithelial Cells Occasional, Urine Bacteria Occasional, Urine Random Sodium 138H, Urine Opiates Screen PositiveH, Urine Barbiturates Screen Negative, Phencyclidine (PCP) Screen Negative, Urine Amphetamines Screen Negative, Urine Benzodiazepines Screen Negative, Urine Cocaine Screen Negative, Urine Marijuana (THC) Screen Negative 10/27/19 12:45: Stool Occult Blood Negative Current Medications Medications (Trade) Dose Ordered Sig/Abel Route PRN Reason Start Time Stop Time Status Last Admin Dose Admin Acetaminophen (Tylenol) 650 mg Q4H PRN ORAL FEVER 10/27/19 17:00 11/25/19 16:59 Acetaminophen/ Codeine Phosphate (Tylenol #3) 1 tab Q4H PRN ORAL Severe Pain (Pain Scale 7-10) 10/27/19 17:00 11/02/19 16:59 10/28/19 06:59 Albuterol/ Ipratropium (Albuterol/ Ipratropium) 3 ml Q4H PRN HHN Shortness of Breath 10/27/19 17:00 10/31/19 16:59 Amlodipine Besylate (Norvasc) 10 mg DAILY ORAL 10/28/19 09:00 11/26/19 08:59 Bupropion HCl (Wellbutrin SR) 150 mg DAILY ORAL 10/28/19 09:00 11/26/19 08:59 Clonidine HCl (Catapres Tab) 0.1 mg EVERY 8 HOURS ORAL 10/27/19 22:00 11/25/19 20:59 10/28/19 06:00 Docusate Sodium (Colace) 100 mg TWICE A DAY ORAL 10/27/19 18:00 11/26/19 08:59 10/27/19 18:12 Heparin Sodium (Porcine) (Heparin 5000 units/ml) 5,000 units EVERY 12 HOURS SUBQ 10/27/19 21:00 11/25/19 20:59 Labetalol HCl (Normodyne) 20 mg Q1H PRN IV sbp more than 160 10/27/19 17:00 11/25/19 14:59 Nitroglycerin (Ntg) 0.4 mg Q5MIN PRN SL Prn Chest Pain 10/27/19 17:00 11/25/19 16:59 Ondansetron HCl (Zofran) 4 mg Q6H PRN IVP Nausea & Vomiting 10/27/19 17:15 11/25/19 17:14 Pantoprazole (Protonix) 40 mg ACBREAKFAST ORAL 10/28/19 06:30 11/27/19 06:29 10/28/19 06:57 Polyethylene Glycol (Miralax) 17 gm DAILYPRN PRN ORAL Constipation 10/28/19 17:15 11/25/19 17:14 Quetiapine Fumarate (SEROqueL) 25 mg DAILY ORAL 10/27/19 17:15 11/26/19 17:14 10/27/19 18:12 Sodium Chloride 1,000 ml @ 75 mls/hr [id number] IV 10/27/19 17:00 11/26/19 16:59 10/28/19 06:43 Temazepam (Restoril) 15 mg HSPRN PRN ORAL Insomnia 10/27/19 21:00 11/02/19 20:59 Jazmine Huang ACQUISITION CONSULTANT Oct 28, 2019 07:17
--- NOTE | 2019-10-28 07:58 | NUR ---
NURSE NOTES: Received pt in bed, AAO x 4. RA. No c/o of pain/distress at this moment. IV on LAC 18 noted with SL, RAC 20g noted, with 1/2 NS @ 75 ml/hr. Side rails x 2. Bed in the lowest and locked. Call light within reach. Will continue to monitor
[2019-10-28 08:00] VITALS: BP 121/76
--- NOTE | 2019-10-28 08:02 | NUR ---
HAND-OFF: Report given to Romain Subramanian RN. Pt in stable condition.
[2019-10-28 08:14] LABS: BASOPHILS % (AUTO) 1.3 % (0.0-2.0); EOSINOPHILS % (AUTO) 0.5 % (0.0-3.0); HEMATOCRIT 26.8 % (37.0-47.0); HEMOGLOBIN 9.4 G/DL (12.0-16.0); LYMPHOCYTES % (AUTO) 41.6 % (20.0-45.0); MEAN CORPUSCULAR VOLUME 86 FL (80-99); MONOCYTES % (AUTO) 8.2 % (1.0-10.0); NEUTROPHILS % (AUTO) 48.5 % (45.0-75.0); PLATELET COUNT 429 K/UL (150-450); RED BLOOD COUNT 3.12 M/UL (4.20-5.40); RED CELL DISTRIBUTION WIDTH 12.9 % (11.6-14.8); WHITE BLOOD COUNT 12.2 K/UL (4.8-10.8)
[2019-10-28 08:41] LABS: INR 0.9 (0.9-1.1)
[2019-10-28 08:47] LABS: LACTATE DEHYDROGENASE 251 U/L (81-234)
[2019-10-28 08:54] LABS: ALANINE AMINOTRANSFERASE 69 U/L (12-78); ALBUMIN 3.2 G/DL (3.4-5.0); ALBUMIN/GLOBULIN RATIO 0.8 (1.0-2.7); ALKALINE PHOSPHATASE 135 U/L (46-116); ANION GAP 12 mmol/L (5-15); ASPARTATE AMINO TRANSFERASE 43 U/L (15-37); BILIRUBIN,TOTAL 0.3 MG/DL (0.2-1.0); BLOOD UREA NITROGEN 38 mg/dL (7-18); CALCIUM 9.1 MG/DL (8.5-10.1); CARBON DIOXIDE 22 MMOL/L (21-32); CHLORIDE 105 MMOL/L (98-107); CREATININE 1.3 MG/DL (0.55-1.30); PHOSPHORUS 3.1 MG/DL (2.5-4.9); POTASSIUM 4.9 MMOL/L (3.5-5.1); SODIUM 139 MMOL/L (136-145)
[2019-10-28] MEDS ORDERED: BuPROPion SR 150mg tab ORAL SCH (09:00)
[2019-10-28] MEDS: Heparin 5000 units/ml inj SUBQ SCH (09:00)
[2019-10-28] MEDS: Docusate 100mg cap ORAL SCH (09:03)
--- NOTE | 2019-10-28 09:39 | Nephrology Progress Note ---
Assessment/Plan Problem List: (1) MILAD (acute kidney injury) (2) Hypertensive emergency (3) Depression (4) Angioedema (5) HIV disease Assessment Renal failure- Hyperkalemia RESOLVED HTN CONTROLLED Anemia- Angioedema due to lisinopril RESOLVED Elevated Troponin h/o Depression HIV status History of splenectomy Plan adjust BP meds- IV hydrate resume diet- cardiac nitrate Anemia williamson 2D echo Kidney MACY urine studies per orders Subjective ROS Limited/Unobtainable: No Constitutional: Reports: other - wants to go home ! Objective Objective Last 24 Hour Vital Signs Date Time Temp Pulse Resp B/P (MAP) Pulse Ox O2 Delivery O2 Flow Rate FiO2 10/28/19 09:14 64 18 97 Room Air 21 10/28/19 09:04 64 121/76 10/28/19 08:10 Room Air 10/28/19 08:00 98.2 64 20 121/76 (91) 97 10/28/19 06:00 122/68 10/28/19 04:00 97.1 70 18 120/69 (86) 96 10/28/19 04:00 Room Air 10/28/19 04:00 56 10/28/19 00:00 67 10/28/19 00:00 97.1 62 18 122/68 (86) 96 10/27/19 21:51 144/87 10/27/19 20:29 82 20 98 Room Air 21 10/27/19 20:00 Room Air 10/27/19 20:00 70 10/27/19 20:00 97.7 69 18 144/87 (106) 96 10/27/19 16:00 77 10/27/19 16:00 Room Air 10/27/19 16:00 97.1 75 15 130/81 (97) 100 10/27/19 15:00 71 18 115/78 (90) 100 10/27/19 14:00 69 18 121/52 (75) 100 10/27/19 14:00 121/52 10/27/19 13:00 82 18 110/75 (87) 100 10/27/19 12:00 Room Air 10/27/19 12:00 74 10/27/19 12:00 97.3 71 19 119/67 (84) 100 10/27/19 11:00 75 19 120/75 (90) 100 10/27/19 10:00 72 19 148/110 (123) 100 Intake and Output 10/27/19 10/28/19 19:00 07:00 Intake Total 1147.5 ml Output Total 1000 ml Balance 147.5 ml Intake Oral 640 ml IV Total 507.5 ml Output Urine Total 1000 ml # Voids 4 3 # Bowel Movements 2 1 Laboratory Tests 10/27/19 12:45: Stool Occult Blood Negative 10/28/19 07:10: White Blood Count 12.2H, Red Blood Count 3.12L, Hemoglobin 9.4L, Hematocrit 26.8L, Mean Corpuscular Volume 86, Mean Corpuscular Hemoglobin 30.0, Mean Corpuscular Hemoglobin Concent 35.0, Red Cell Distribution Width 12.9, Platelet Count 429, Mean Platelet Volume 5.1L, Neutrophils (%) (Auto) 48.5, Lymphocytes ( %) (Auto) 41.6, Monocytes (%) (Auto) 8.2, Eosinophils (%) (Auto) 0.5, Basophils (%) (Auto) 1.3, Erythrocyte Sedimentation Rate [Pending], Reticulocyte Count [ Pending], Prothrombin Time 10.0, Prothromb Time International Ratio 0.9, Activated Partial Thromboplast Time 25, Sodium Level 139, Potassium Level 4.9, Chloride Level 105, Carbon Dioxide Level 22, Anion Gap 12, Blood Urea Nitrogen 38H, Creatinine 1.3, Estimat Glomerular Filtration Rate 49.8, Glucose Level 88, Uric Acid 7.6H, Calcium Level 9.1, Phosphorus Level 3.1, Magnesium Level 2.2, Iron Level [Pending], Unsaturated Iron Binding [Pending], Total Bilirubin 0.3, Aspartate Amino Transf (AST/SGOT) 43H, Alanine Aminotransferase (ALT/SGPT) 69, Alkaline Phosphatase 135H, Lactate Dehydrogenase 251H, Troponin I 0.118H, C- Reactive Protein, Quantitative 1.8H, Pro-B-Type Natriuretic Peptide 496H, Total Protein 7.2, Albumin 3.2L, Globulin 4.0, Albumin/Globulin Ratio 0.8L, Carcinoembryonic Antigen [Pending], Vitamin B12 Level [Pending], Folate [Pending ] Height (Feet): 5 Height (Inches): 4.00 Weight (Pounds): 170 General Appearance: no apparent distress Objective no change Jordin Llanos MD Oct 28, 2019 09:39
[2019-10-28 10:02] LABS: % IRON SATURATION 56 % (15-50); IRON 131 ug/dL (50-175); TOTAL IRON BINDING CAPACITY 234 ug/dL (250-450)
[2019-10-28 12:00] VITALS: BP 111/72
--- NOTE | 2019-10-28 12:15 | NUR ---
NURSE NOTES: pt wants to go home, placed a call to dr mcnair and message left.
[2019-10-28] MEDS ORDERED: 1/2 NS 1000ml IV ONE (12:17)
[2019-10-28] MEDS ORDERED: NS 275ml ONE (12:17)
[2019-10-28] MEDS ORDERED: Tubing IV Secondary IV ONE (12:59)
[2019-10-28] MEDS ORDERED: Docusate 100mg cap ORAL SCH (13:00)
--- NOTE | 2019-10-28 13:00 | NUR ---
NURSE NOTES: Patient left AMA accompanied by pt's daughter. Patient is AO x 4. Risk and disadvantage was explained. AMA for was signed. ID and IV was removed. Belonging were given to the patient.
--- NOTE | 2019-10-28 13:14 | Internal Med Progress Note ---
Subjective Date of Service: Oct 28, 2019 Physician Name BuenrostroRogelio Attending Physician Robles Henderson MD Current Medications Medications (Trade) Dose Ordered Sig/Abel Route PRN Reason Start Time Stop Time Status Last Admin Dose Admin Acetaminophen (Tylenol) 650 mg Q4H PRN ORAL FEVER 10/27/19 17:00 11/25/19 16:59 Acetaminophen/ Codeine Phosphate (Tylenol #3) 1 tab Q4H PRN ORAL Severe Pain (Pain Scale 7-10) 10/27/19 17:00 11/02/19 16:59 10/28/19 06:59 Albuterol/ Ipratropium (Albuterol/ Ipratropium) 3 ml Q4H PRN HHN Shortness of Breath 10/27/19 17:00 10/31/19 16:59 Amlodipine Besylate (Norvasc) 10 mg DAILY ORAL 10/28/19 09:00 11/26/19 08:59 10/28/19 09:04 Bupropion HCl (Wellbutrin SR) 150 mg DAILY ORAL 10/28/19 09:00 11/26/19 08:59 10/28/19 09:03 Clonidine HCl (Catapres Tab) 0.1 mg EVERY 8 HOURS ORAL 10/27/19 22:00 11/25/19 20:59 10/28/19 06:00 Docusate Sodium (Colace) 100 mg TID ORAL 10/28/19 13:00 11/26/19 08:59 Heparin Sodium (Porcine) (Heparin 5000 units/ml) 5,000 units EVERY 12 HOURS SUBQ 10/27/19 21:00 11/25/19 20:59 Labetalol HCl (Normodyne) 20 mg Q1H PRN IV sbp more than 160 10/27/19 17:00 11/25/19 14:59 Nitroglycerin (Ntg) 0.4 mg Q5MIN PRN SL Prn Chest Pain 10/27/19 17:00 11/25/19 16:59 Ondansetron HCl (Zofran) 4 mg Q6H PRN IVP Nausea & Vomiting 10/27/19 17:15 11/25/19 17:14 Pantoprazole (Protonix) 40 mg ACBREAKFAST ORAL 10/28/19 06:30 11/27/19 06:29 10/28/19 06:57 Polyethylene Glycol (Miralax) 17 gm DAILYPRN PRN ORAL Constipation 10/28/19 17:15 11/25/19 17:14 Quetiapine Fumarate (SEROqueL) 25 mg DAILY ORAL 10/27/19 17:15 11/26/19 17:14 10/28/19 09:04 Sodium Chloride 1,000 ml @ 75 mls/hr [id number] IV 10/27/19 17:00 11/26/19 16:59 10/28/19 06:43 Temazepam (Restoril) 15 mg HSPRN PRN ORAL Insomnia 10/27/19 21:00 11/02/19 20:59 Allergies: Coded Allergies: LISINOPRIL (Verified Allergy, Unknown, 10/26/19) ROS Limited/Unobtainable: No Constitutional: Reports: no symptoms HEENT: Reports: no symptoms Cardiovascular: Reports: no symptoms Respiratory: Reports: no symptoms Gastrointestinal/Abdominal: Reports: no symptoms Genitourinary: Reports: no symptoms Neurologic/Psychiatric: Reports: no symptoms Subjective 64 YO F admitted with angioedema of the tongue. Cover for Int Med-DR Henderson Objective Last Vital Signs Date Time Temp Pulse Resp B/P (MAP) Pulse Ox O2 Delivery O2 Flow Rate FiO2 10/28/19 09:14 64 18 97 Room Air 21 10/28/19 09:04 121/76 10/28/19 08:00 98.2 10/26/19 15:10 5.0 Laboratory Tests Test 10/28/19 07:10 10/28/19 09:20 White Blood Count 12.2 K/UL (4.8-10.8) H Red Blood Count 3.12 M/UL (4.20-5.40) L Hemoglobin 9.4 G/DL (12.0-16.0) L Hematocrit 26.8 % (37.0-47.0) L Mean Corpuscular Volume 86 FL (80-99) Mean Corpuscular Hemoglobin 30.0 PG (27.0-31.0) Mean Corpuscular Hemoglobin Concent 35.0 G/DL (32.0-36.0) Red Cell Distribution Width 12.9 % (11.6-14.8) Platelet Count 429 K/UL (150-450) Mean Platelet Volume 5.1 FL (6.5-10.1) L Neutrophils (%) (Auto) 48.5 % (45.0-75.0) Lymphocytes (%) (Auto) 41.6 % (20.0-45.0) Monocytes (%) (Auto) 8.2 % (1.0-10.0) Eosinophils (%) (Auto) 0.5 % (0.0-3.0) Basophils (%) (Auto) 1.3 % (0.0-2.0) Erythrocyte Sedimentation Rate Pending Reticulocyte Count Pending Prothrombin Time 10.0 SEC (9.30-11.50) Prothromb Time International Ratio 0.9 (0.9-1.1) Activated Partial Thromboplast Time 25 SEC (23-33) Sodium Level 139 MMOL/L (136-145) Potassium Level 4.9 MMOL/L (3.5-5.1) Chloride Level 105 MMOL/L (98-107) Carbon Dioxide Level 22 MMOL/L (21-32) Anion Gap 12 mmol/L (5-15) Blood Urea Nitrogen 38 mg/dL (7-18) H Creatinine 1.3 MG/DL (0.55-1.30) Estimat Glomerular Filtration Rate 49.8 mL/min (>60) Glucose Level 88 MG/DL (74-106) Uric Acid 7.6 MG/DL (2.6-7.2) H Calcium Level 9.1 MG/DL (8.5-10.1) Phosphorus Level 3.1 MG/DL (2.5-4.9) Magnesium Level 2.2 MG/DL (1.8-2.4) Iron Level 131 ug/dL (50-175) Pending Total Iron Binding Capacity 234 ug/dL (250-450) L Percent Iron Saturation 56 % (15-50) H Unsaturated Iron Binding 103 ug/dL (112-346) L Pending Total Bilirubin 0.3 MG/DL (0.2-1.0) Aspartate Amino Transf (AST/SGOT) 43 U/L (15-37) H Alanine Aminotransferase (ALT/SGPT) 69 U/L (12-78) Alkaline Phosphatase 135 U/L (46-116) H Lactate Dehydrogenase 251 U/L (81-234) H Troponin I 0.118 ng/mL (0.000-0.056) C-Reactive Protein, Quantitative 1.8 mg/dL (0.00-0.90) H Pro-B-Type Natriuretic Peptide 496 pg/mL (0-125) H Total Protein 7.2 G/DL (6.4-8.2) Albumin 3.2 G/DL (3.4-5.0) L Globulin 4.0 g/dL Albumin/Globulin Ratio 0.8 (1.0-2.7) L Carcinoembryonic Antigen Pending Vitamin B12 Level 954 PG/ML (193-986) Folate 10.0 NG/ML (8.6-58.9) Ferritin 443 NG/ML (8-388) H Microbiology Date/Time Source Procedure Growth Status 10/26/19 15:09 Nasal Nares MRSA Culture - Final NO METHICILLIN RESISTANT STAPH AUREUS... Complete 10/26/19 15:09 Rectum - Final NO CARBAPENEM-RESISTANT ENTEROBACTERI... Complete 10/26/19 15:09 Rectum VRE Culture - Final NO VANCOMYCIN RESISTANT ENTEROCOCCUS ... Complete Intake and Output 10/27/19 10/28/19 19:00 07:00 Intake Total 1147.5 ml Output Total 1000 ml Balance 147.5 ml Intake Oral 640 ml IV Total 507.5 ml Output Urine Total 1000 ml # Voids 4 3 # Bowel Movements 2 1 Objective PHYSICAL EXAMINATION: GENERAL: The patient is well-developed, well-nourished female, in no apparent distress. HEENT: Eyes, pupils are equal and responsive to light and accommodation. Extraocular movements are intact. NECK: Supple without lymphadenopathy. CHEST: Lungs are clear to auscultation bilaterally without wheezes or rales. CARDIOVASCULAR: Regular rate. S1, S2 normal without murmurs, rubs, or gallops. ABDOMEN: Soft, nontender, and nondistended. Positive bowel sounds. No evidence of hepatosplenomegaly. Currently, no rebound or guarding noted. EXTREMITIES: Negative for clubbing, cyanosis, or edema. RECTAL/GENITAL: Not performed. NEUROLOGIC: Cranial nerves II through XII are grossly intact without focal deficits. Motor strength is 5/5 bilaterally. Deep tendon reflexes are 2+ plantar. Assessment/Plan Assessment/Plan ASSESSMENT: This is a 64-year-old female. 1. Angioedema of the tongue. 2. Possible allergic reaction to lisinopril. 3. Hypertension. 4. Chronic obstructive pulmonary disease. 5. Hypercholesterolemia. 6. Renal insufficiency. 7. Leukocytosis. TREATMENT: 1. Angioedema of the tongue. The patient has received lidocaine and epinephrine in the emergency room. Tongue swelling is receding. The patient is able to talk in complete sentences. We will continue epinephrine p.r.n. Swelling resolved 2. Allergic reaction. This may be secondary to lisinopril, the patient denies taking lisinopril today. 3. Chronic obstructive pulmonary disease. Continue albuterol metered-dose inhaler as above. The patient will be offered DuoNebs p.r.n. 4. Hypercholesterolemia. Continue atorvastatin as above. 5. Renal insufficiency. This may be secondary to dehydration. 6. Leukocytosis. 7. Depression. Continue Zoloft and mirtazapine as above. 8. Patient left AGAINST MEDICAL ADVISE. Rogelio Buenrostro MD Oct 28, 2019 13:14
[2019-10-28] MEDS ORDERED: Miralax 17gm pkt ORAL PRN (17:15)
--- NOTE | 2019-10-30 10:25 | Discharge Summary ---
Discharge Summary Discharge Summary _ DATE OF ADMISSION: 10/26/2019 DATE OF DISCHARGE: 10/28/2019 Patient left AGAINST MEDICAL ADVICE REASON FOR ADMISSION: 64 years old female with past medical history of hypertension, hyperlipidemia, HIV status, presented to emergency department with complaint of tongue swelling. Symptoms started suddenly in the morning and later progressed throughout the day, possibly aggravated by lisinopril, that the patient was taken for hypertension. Patient presented due to difficulty breathing . Upon evaluation she was tachycardic and severely hypertensive with blood pressure 204/97. Patient required simple mask 5 L of oxygen to maintain appropriate oxygenation. Anesthesia was urgently called , preparation for emergency intubation was in order. However, patient was able to maintain her secretions, and airway maintained remained patent. . Laboratory work-up revealed leukocytosis WBC 15.2, hemoglobin 9.9 , hematocrit 28.3. BUN 34, creatinine 1.8. Glucose 129. Troponin 0.071 Patient received TXA, epinephrine , Pepcid Decadron, one liter of fluid and nebulized lidocaine. Patient admitted for further management. CONSULTANTS: pulmonary Dr. Coleman independent driver Dr. Llanos [facility] COURSE: Patient initially transferred to ICU. Angioedema subsided . Patient was transferred to telemetry floor. Serial troponin trending down, but still remained elevated. Patient denied chest pain. Echocardiogram revealed preserved ejection fraction of 60 to 65% with no evidence of wall motion abnormality. Mild pulmonary hypertension noted. Cardiology consult was pending. Supplemental oxygen provided and titrated to keep oximetry above 92%. Pulmonary toilet with bronchodilator provided as needed. Pulse oximetry was stable on room air. Antihypertensive medication regimen was optimized to keep blood pressure under control . Blood pressure stabilized. DVT and GI prophylaxis provided. Stool for occult blood was negative. CEA was within normal limits. Anemia work-up was consistent with anemia of chronic disease. Hemoglobin abd hematocrit were closely monitored with goal to keep hemoglobin above 7. Prior to signing AMA hemoglobin 9.4 ,hematocrit 26.8. Renal parameters and electrolytes were closely monitored. Nephrotoxins were avoided. Renal ultrasound was essentially unremarkable. Prior to signing AMA creatinine from 1.8 down to 1.3. Acute kidney injury resolved. Antidepressant continued. Patient was counseled on smoking cessation. Patient declined nicotine patch. Patient decided to leave AGAINST MEDICAL ADVICE. The risks and consequences of signing AGAINST MEDICAL ADVICE were discussed with patient in detail. Patient verbalized understanding, nevertheless signed AMA form and left. FINAL DIAGNOSES: Hypertensive emergency -resolved Angioedema , likely due to lisinopril - resolved COPD HIV status Acute kidney injury -resolved Anemia Elevated troponin Hyperkalemia -resolved History of splenectomy Tobacco use Depression Jazmine Huang NP Oct 30, 2019 10:25
== END 2019-10-28 13:00 | disposition left against medical advice (07) | DRG 916 ==
LOC: EMR 13:55 → ICU 13:58 → EDBEDREQ 15:43 → ICU 16:17 → 2E 10-27 16:50
DX: T78.3XXA Angioneurotic edema, initial encounter (principal); N17.9 Acute kidney failure, unspecified; I16.1 Hypertensive emergency; B00.89 Other herpesviral infection; T46.4X5A Adverse effect of angiotensin-converting-enzyme inhibitors, initial encounter; E87.5 Hyperkalemia; J44.9 Chronic obstructive pulmonary disease, unspecified; E78.00 Pure hypercholesterolemia, unspecified; I10 Essential (primary) hypertension; D64.9 Anemia, unspecified; Z90.81 Acquired absence of spleen; F17.200 Nicotine dependence, unspecified, uncomplicated; F32.9 Major depressive disorder, single episode, unspecified; I27.20 Pulmonary hypertension, unspecified
CPT/HCPCS: 36415; 76770; 80048; 80053; 80061; 80076; 80307; 81001; 82270; 82378; 82550; 82607; 82728; 82746; 83540; 83550; 83615; 83735; 83880; 84100; 84300; 84443; 84484; 84550; 85007; 85025; 85044; 85060; 85610; 85651; 85730; 86140; 87081; 93005; 93306; 94664; 96365; 96372; 96375; 99291; J2405; J7030